=== PATIENT | male | born 1955 | race Caucasian/White ===

== ENCOUNTER 2022-06-09 19:51 | Emergency (ER) | payer BC ==
[~2022-06-09] VITALS: Ht 165.1 cm; Wt 95.3 kg
[2022-06-09] MEDS ORDERED: NITROGLYCERIN OINT 1 GM PACKET TP ONE ×2 (20:00→21:22)
[2022-06-09] MEDS ORDERED: ASPIRIN 81 MG TAB.CHEW PO ONE (20:00)
[2022-06-09 20:39] LABS: HEMATOCRIT 43.9 % (36.7-47.1); MEAN CORPUSCULAR HEMOGLOBIN 28.9 uug (23.8-33.4); MEAN CORPUSCULAR VOLUME 87.9 fL (73.0-96.2); PLATELET COUNT (AUTO) 233 K/uL (152-348)
[2022-06-09 20:41] LABS: CARBON DIOXIDE 26 mmol/L (21-32); CHLORIDE 102 mmol/L (98-107); GLUCOSE 182 mg/dL (74-106); POTASSIUM 3.7 mmol/L (3.5-5.1); UREA NITROGEN, BLOOD 13 mg/dL (7-18)
[2022-06-09] MEDS ORDERED: MAGNESIUM SULFATE/D5W 100 ML IV SCH (21:00)
[2022-06-09] MEDS ORDERED: IV NS 1000 ML 1,000 ML IV ONE (21:00)
[2022-06-09] MEDS ORDERED: ASPIRIN 81 MG TAB.CHEW ONE (21:21)
[2022-06-09] MEDS ORDERED: MAGNESIUM SULFATE/D5W 100 ML ONE (21:23)
[2022-06-09 23:22] LABS: BILIRUBIN,DIRECT 0.1 mg/dL (0.0-0.2); BILIRUBIN,TOTAL 0.2 mg/dL (0.2-1.0)
[2022-06-10] MEDS ORDERED: ACETAMINOPHEN 325 MG TABLET PO PRN (01:15)
[2022-06-10] MEDS ORDERED: HYDROCODONE/APAP 5-325MG TABLET PO PRN (01:15)
[2022-06-10] MEDS ORDERED: ENOXAPARIN SODIUM 40 MG/0.4 ML DISP.SYRIN SQ SCH (01:15)
[2022-06-10] MEDS ORDERED: ONDANSETRON 4 MG/2 ML VIAL IV PRN (01:15)
[2022-06-10] MEDS ORDERED: hydrALAZINE HCL 25 MG TABLET PO PRN (01:15)
[2022-06-10] MEDS ORDERED: REMEDY ESSENTIAL ZINC PASTE 113 GM TP PRN (01:15)
[2022-06-10] MEDS ORDERED: MAGNESIUM HYDROXIDE 30 ML LIQUID UDC PO PRN (01:15)
--- NOTE | 2022-06-10 03:27 | NUR ---
CONSENT SIGNED BY PATIENT TO RECEIVED MEDICAL INFORMATION FROM [facility] BUT PATIENT STATED THAT HE HAD COURT AT 0900 AND LEFT AT 0315 AMA.
[2022-06-10 04:59] VITALS: BP 129/73
[2022-06-10] MEDS ORDERED: PANTOPRAZOLE SODIUM 40 MG TABLET.DR PO SCH (07:00)
[2022-06-10] MEDS ORDERED: ASPIRIN 81 MG TAB.CHEW PO SCH (09:00)
== END 2022-06-10 03:15 | disposition left against medical advice (07) ==
LOC: ER 20:15
DX: I24.9 Acute ischemic heart disease, unspecified (principal); I10 Essential (primary) hypertension; E87.20 Acidosis, unspecified; E83.42 Hypomagnesemia
CPT/HCPCS: 99291; 96374; 80048; 82247; 82248; 83880; 83735; 85025; 85379; 84484 ×3; 36415; 93005; 71045; 83605 ×2; J3475; J7040; A4663